=== PATIENT | male | born 2000 | race Caucasian/White ===

== ENCOUNTER 2024-07-27 04:31 | Emergency (ER) | payer OTHER ==
[~2024-07-27] VITALS: Ht 170.2 cm; Wt 66.7 kg
[2024-07-27 05:29] VITALS: BP 134/89; TEMP 98; O2SAT 99
== END 2024-07-27 06:02 | disposition left against medical advice (07) ==
LOC: ER 04:38
DX: R42 Dizziness and giddiness (principal); R07.9 Chest pain, unspecified; R20.0 Anesthesia of skin
CPT/HCPCS: 71045-TC